=== PATIENT | male | born 1960 ===

== ENCOUNTER 2018-06-26 09:35 | Emergency (ER) | payer BC, OTHER ==
[2018-06-26 09:42] VITALS: BP 135/78
--- NOTE | 2018-06-26 11:21 | UC ---
Throat Pain/Nasal [place] HPI - HPI Summary HPI Summary: 57 y/o male presents to the urgent care c/o sinus congestion w/ yellowish nasal discharge, chills, sore throat, sinus pressure and mild BAKER for the past 2 days. Pt reports Hx of Chronic Sinusitis and has been taking Claritin D and using Flonase Nasal [place] to alleviate symptoms w/o any improvement. Now he feels symptoms are worsen and he needs antibiotic treatment. he gets every month allergy shots. Pain w/ swallowing is 4/10. Pt denies fever, dizziness, ear pain , cough, SOB, chest pain, abdominal pain, N/V/D. - History of Current Complaint Chief Complaint: UCRespiratory Stated Complaint: SINUS COMPLAINT Time Seen by Provider: 06/26/18 11:20 Hx Obtained From: Patient Onset/Duration: Gradual Onset, Lasting Days - 2 days, Still Present, Worse Since - today Severity: Moderate Pain Intensity: 4 Pain Scale Used: 0-10 Numeric Cough: Nonproductive Associated Signs & Symptoms: Positive: Dysphagia - mild sore thraot, Sinus Discomfort, Nasal Discharge - yellowish. Negative: Fever - Epiglottits Risk Factors Epiglottis Risk Factors: Negative - Allergies/Home Medications Allergies/Adverse Reactions: Allergies Allergy/AdvReac Type Severity Reaction Status Date / Time azithromycin Allergy swelling Verified 06/26/18 09:43 [From Zithromax Z-Joseph] hives Home Medications: Home Medications Mometasone Furoate 50 mg .ROUTE DAILY 06/26/18 [History Confirmed 06/26/18] PMH/Surg Hx/FS Hx/Imm Hx Previously Healthy: Yes Other Respiratory History: chronic sinusitis - Surgical History Surgical History: Yes Surgery Procedure, Year, and Place: hernias x 2 gall bladder - Family History Known Family History: Positive: Hypertension, Diabetes - Social History Occupation: Employed Full-time Lives: With Family Alcohol Use: Rare Substance Use Type: None Smoking Status (MU): Never Smoked Tobacco Review of Systems All Other Systems Reviewed And Are Negative: Yes Constitutional: Positive: Chills Skin: Positive: Negative Eyes: Positive: Negative ENT: Positive: Sore Throat - mild, Nasal Discharge - yellowish, Sinus Congestion , Sinus Pain/Tenderness, Other - PND Respiratory: Positive: Cough - dry Cardiovascular: Positive: Negative Gastrointestinal: Positive: Negative Genitourinary: Positive: Negative Motor: Positive: Negative Neurovascular: Positive: Negative Musculoskeletal: Positive: Negative Neurological: Positive: Headache - mild Psychological: Positive: Negative Is Patient Immunocompromised?: No Physical Exam - Summary Physical Exam Summary: Vitals: reviewed General: Well developed, well-nourished male patient with NAD. Head and face: Normocephalic and atraumatic, Positive tenderness over the frontal and maxillary sinuses.. Eyes: PERRLA, EOMI x 2. Normal conjunctiva. No eye discharge. ENT: Ears and TM with normal limits. Nose: edematous and erythematous nasal mucosa with with yellowish discharge and erythematous mucosa. Pharynx with erythema, uvula with erythema and in the mid line, no exudate. No Tonsillar enlargement, +PND yellowish Neck: Supple, no JVD, no carotid bruits and no lymphadenopathy. Lungs: clear, no rales, no rhonchi, no wheezes. CVS: RRR, S1 and S2 present no murmurs or gallops appreciated. Abdomen: soft nontender with positive bowel sounds. Extremities: no edema noted. Neuro: WNL. Skin: warm and dry Triage Information Reviewed: Yes Vital Signs: Initial Vital Signs Temp 97.8 F 06/26/18 09:39 Pulse 72 06/26/18 09:39 Resp 18 06/26/18 09:39 BP 135/78 06/26/18 09:39 Pulse Ox 100 06/26/18 09:39 Throat Pain/Nasal Course/Dx - Course Course Of Treatment: 57 y/o male presents to the urgent care c/o sinus congestion w/ yellowish nasal discharge, chills, sore throat, sinus pressure and mild BAKER for the past 2 days. Pt reports Hx of Chronic Sinusitis and has been taking Claritin D and using Flonase Nasal [place] to alleviate symptoms w/o any improvement. Now he feels symptoms are worsen and he needs antibiotic treatment. he gets every month allergy shots. Pain w/ swallowing is 4/10. Pt denies fever, dizziness, ear pain, cough, SOB, chest pain, abdominal pain, N/V/ D. Hx obtained. Pt w/ Bacterial sinusitis and pharyngitis on examination.Rapid strep: negative. Pt with Hx of Chronic sinusitis and doing symptomatic treatment w/o any improvement. Pt requests antibiotic treatment. Pt Rx Augmentin PO, but advised only to start taking it only if symptoms worsen. Advised to continue w/ flonase nasal spray, saline drops and Claritine D PO to clear sinuses. Discharge instructions explained to Pt. Advised to Return to the clinic or PCP if symptoms do not improve.Pt understood and agreed with plan of care. - Differential Dx/Diagnosis Differential Diagnosis/HQI/PQRI: Influenza, Laryngitis, Pharyngitis, Sinusitis, Tonsillitis, URI Provider Diagnosis: Acute bacterial sinusitis, Pharyngitis Discharge - Sign-Out/Discharge Documenting (check all that apply): Patient Departure - d/c home All imaging exams completed and their final reports reviewed: No Studies - Discharge Plan Condition: Stable Disposition: HOME Prescriptions: Amoxicillin/Clavulanate TAB* [Augmentin TAB 875*] 875 mg PO BID #20 tab Patient Education Materials: Pharyngitis (ED), Sinusitis (ED) Referrals: Dino [place], [employer] [Primary Care Provider] - 3 Days Additional Instructions: 1- Please increase fluid intake and rest. Start Augmentin PO only if symptoms worsen despite the symptomatic treatment. 2-Continue Using Flonase nasal spray as directed to help drain fluid. Also buy saline drops to clear sinuses as directed 3-Continue taking Claritin D PO to alleviates sinus congestion 4-Return to the clinic or PCP if symptoms do not improve for further management and treatment 5- Rapid Strep was negative - Billing Disposition and Condition Condition: STABLE Disposition: Home
== END 2018-06-26 12:12 | disposition home or self-care (01) ==
LOC: UCEAST 09:35
DX: J01.80 Other acute sinusitis (principal); J02.9 Acute pharyngitis, unspecified; Z88.1 Allergy status to other antibiotic agents
CPT/HCPCS: 87651; 99202; G0463